=== PATIENT | female | born 1960 | race African-American/Black ===

== ENCOUNTER → 2023-12-16 | Outpatient (CLI) | payer BC ==
[~2023-12-16] VITALS: Ht 154.9 cm; Wt 72.6 kg
[~2023-12-16] MED LIST: ASPI-1079 PO; CYCL5TAB PO; METO-396 PO; ONDANSETRON HCL 4MG/2ML INJ IV SCH; ONDANSETRON HCL 4MG/2ML INJ ONE; RAMI2.5C54 PO; REGADENOSON 0.4 MG/5 ML IV ONE
== END | disposition home or self-care (01) ==
LOC: RAD 07:55
PROVIDERS: ATTEND Internal Medicine
DX: I34.0 Nonrheumatic mitral (valve) insufficiency (principal); I49.9 Cardiac arrhythmia, unspecified; R06.02 Shortness of breath; I47.20 Ventricular tachycardia, unspecified; I11.9 Hypertensive heart disease without heart failure
CPT/HCPCS: 78452; 93306; J2785; A9500; J2405; 93017